=== PATIENT | male | born 1985 | race Hispanic/Latino ===

== ENCOUNTER 2022-02-16 17:01 | Emergency (ER) | payer SELFPAY ==
[~2022-02-16] VITALS: Ht 165.1 cm; Wt 69.5 kg
[2022-02-16 17:23] VITALS: BP 135/91
[2022-02-16 17:30] VITALS: BP 114/75
[2022-02-16] MEDS ORDERED: MOTRIN800 MG PO (18:22)
[2022-02-16] MEDS ORDERED: TRAMADOL HCL50 MG PO (18:22)
== END 2022-02-16 18:46 | disposition home or self-care (01) | DRG 563 ==
LOC: ED 17:01
DX: S46.911A Strain of unspecified muscle, fascia and tendon at shoulder and upper arm level, right arm, initial encounter (principal); W01.0XXA Fall on same level from slipping, tripping and stumbling without subsequent striking against object, initial encounter; Y92.002 Bathroom of unspecified non-institutional (private) residence as the place of occurrence of the external cause

== ENCOUNTER 2023-07-14 09:56 | Emergency (ER) | payer SELFPAY ==
[~2023-07-14] VITALS: Ht 165.1 cm; Wt 74.6 kg
[~2023-07-14 09:56] MED LIST: MOTRIN800 MG PO; TRAMADOL HCL50 MG PO
[2023-07-14] MEDS ORDERED: AMOX/K CLAV875 M1 PO (11:43)
[2023-07-14 13:16] VITALS: BP 121/78
== END 2023-07-14 13:56 | disposition home or self-care (01) | DRG 603 ==
LOC: ED 09:56
DX: L02.511 Cutaneous abscess of right hand (principal)